=== PATIENT | female | born 1935 | race American Indian/Alaskan Native ===

== ENCOUNTER 2017-03-27 15:04 | Inpatient (IN) | payer MEDICARE ==
[2017-03-27 15:50] LABS: Basophils % (Auto) 0.6 % (0.0-1.8); Eosinophils % (Auto) 1.3 % (0.0-4.3); Hematocrit 42.8 % (30.3-42.9); Hemoglobin 14.2 gm/dl (10.1-14.3); Mean Corpuscular HGB Conc 33 % (30-34); Mean Corpuscular Hemoglobin 32 pg (28-32); Mean Corpuscular Volume 96 fl (79-97); Platelet Count 142 K/mm3 (140-440); Red Blood Count 4.44 M/mm3 (3.65-5.03); Red Cell Distribution Width 15.1 % (13.2-15.2); White Blood Count 3.9 K/mm3 (4.5-11.0)
[2017-03-27 16:08] LABS: Anion Gap 18 mmol/L; BUN/Creatinine Ratio 25; Blood Urea Nitrogen 15 mg/dL (7-17); Calcium 9.3 mg/dL (8.4-10.2); Carbon Dioxide 25 mmol/L (22-30); Chloride 101.3 mmol/L (98-107); Glucose 93 mg/dL (65-100); Potassium 3.8 mmol/L (3.6-5.0); Sodium 140 mmol/L (137-145)
[2017-03-27] MEDS ORDERED: BABY ASPIRIN PO ONE (18:19)
[2017-03-27] MEDS ORDERED: NACL 0.9% 1000 ML 1,000 ML IV ONE (18:19)
--- NOTE | 2017-03-27 18:23 | Emergency Department Report ---
ED Chest Pain HPI - General Chief Complaint: Chest Pain Stated Complaint: CHEST PAIN/NO URINE Time Seen by Provider: 03/27/17 18:11 Source: patient Mode of arrival: Ambulatory Limitations: No Limitations - History of Present Illness Initial Comments: Recent is a 81 years old female history of high blood pressure, chronic dysphagia for which she had full workup at [facility] in [place]. She presented today with her daughter with a left chest pain this been going on for 2 days described as pressure radiating to her left arm. Her daughter also stated that she is been having difficulty eating or drinking, decreased urine output. Denied any fever nausea or vomiting no diarrhea. MD Complaint: chest pain Onset: during rest Pain Location: left chest Pain Radiation: back Severity: moderate Severity scale (0 -10): 4 Quality: tightness - Related Data Home Medications Medication Instructions Recorded Confirmed Last Taken Amlodipine Besylate/Benazepril 10 DAILY 10/16/14 10/16/14 10/15/14 [amLODIPine-Benazepril 10/20 mg] Omeprazole [PriLOSEC] 40 mg PO 10/16/14 10/16/14 10/15/14 Promethazine [Phenergan TAB] 25 mg PO Q6H PRN 10/16/14 10/16/14 10/15/14 Tramadol HCl [traMADol] 50 mg PO 10/16/14 10/16/14 10/15/14 Allergies Allergy/AdvReac Type Severity Reaction Status Date / Time No Known Allergies Allergy Verified 03/27/17 15:19 Heart Score - HEART Score History: Moderately suspicious EKG: Non-specific Age: > 65 Risk factors: > 3 risk factors or hx of atherosclerotic disease Troponin: < normal limit HEART Score: 6 - Critical Actions Critical Actions: 4-6 pts:12-16.6% risk of adverse cardiac event. Should be admitted ED Review of Systems ROS: Stated complaint: CHEST PAIN/NO URINE Other details as noted in HPI Comment: All other systems reviewed and negative Constitutional: denies: chills, fever Respiratory: denies: cough, orthopnea, shortness of breath, SOB with exertion Cardiovascular: chest pain. denies: palpitations, dyspnea on exertion, orthopnea Gastrointestinal: denies: abdominal pain, nausea, vomiting, diarrhea, constipation, hematemesis, melena, hematochezia Genitourinary: denies: urgency Skin: denies: rash Neurological: denies: headache, weakness, numbness, paresthesias ED Past Medical Hx - Past Medical History Previous Medical History?: Yes Hx Hypertension: Yes Hx GERD: Yes Additional medical history: Heart murmer, Syphillus - Surgical History Past Surgical History?: Yes Additional Surgical History: Cerebral shunt, neck surgery - Social History Smoking Status: Never Smoker Substance Use Type: None - Medications Home Medications: Home Medications Medication Instructions Recorded Confirmed Last Taken Type Amlodipine Besylate/Benazepril 10 DAILY 10/16/14 10/16/14 10/15/14 History [amLODIPine-Benazepril 10/20 mg] Omeprazole [PriLOSEC] 40 mg PO 10/16/14 10/16/14 10/15/14 History Promethazine [Phenergan TAB] 25 mg PO Q6H PRN 10/16/14 10/16/14 10/15/14 History Tramadol HCl [traMADol] 50 mg PO 10/16/14 10/16/14 10/15/14 History ED Physical Exam - General Limitations: No Limitations General appearance: alert, in no apparent distress - Head Head exam: Present: atraumatic, normocephalic - Eye Eye exam: Present: normal appearance, PERRL - ENT ENT exam: Present: mucous membranes dry - Neck Neck exam: Present: normal inspection, full ROM. Absent: tenderness, meningismus - Respiratory Respiratory exam: Present: normal lung sounds bilaterally. Absent: wheezes, rales, rhonchi, stridor, chest wall tenderness, accessory muscle use, decreased breath sounds - Cardiovascular Cardiovascular Exam: Present: regular rate, systolic murmur - GI/Abdominal GI/Abdominal exam: Present: soft, normal bowel sounds. Absent: distended, tenderness, guarding, rebound, rigid, mass, bruit, pulsatile mass - Back Exam Back exam: Present: normal inspection. Absent: CVA tenderness (R), CVA tenderness (L) - Neurological Exam Neurological exam: Present: alert, oriented X3, CN II-XII intact - Psychiatric Psychiatric exam: Present: normal affect - Skin Skin exam: Present: warm, intact, normal color ED Course Vital Signs 03/27/17 15:20 Temperature 98.6 F Pulse Rate 88 Respiratory 18 Rate Blood Pressure 148/73 O2 Sat by Pulse 100 Oximetry - Reevaluation(s) Reevaluation #1: 03/27/17 18:33 Patient stated that her chest pain is better now. ED Medical Decision Making - Lab Data Result diagrams: 03/27/17 15:34 03/27/17 15:34 - EKG Data -: EKG Interpreted by Me EKG shows normal: sinus rhythm Rate: normal - EKG Data Interpretation: no acute changes - Medical Decision Making Discussed with Dr. Biswas, I presented the patient to him he accepted the patient to be admitted to telemetry. Critical care attestation.: If time is entered above; I have spent that time in minutes in the direct care of this critically ill patient, excluding procedure time. ED Disposition Clinical Impression: Chest pain, Dehydration, Dysphagia Disposition: DC-09 OP ADMIT IP TO THIS HOSP Is pt being admited?: Yes Condition: Stable Instructions: Chest Pain (ED) Referrals: PRIMARY CARE, [Primary Care Provider] - 3-5 Days
[2017-03-27] MEDS ORDERED: NACL 0.9% 1000 ML 1,000 ML ONE (19:48)
[2017-03-27] MEDS ORDERED: BABY ASPIRIN ONE (19:48)
--- NOTE | 2017-03-27 20:45 | XRay Report ---
FINAL REPORT EXAM: XR CHEST 1V AP HISTORY: chest pain TECHNIQUE: upright single view chest PRIORS: None. FINDINGS: Cardiac and mediastinal contours are unremarkable. No focal pulmonary infiltrate is identified. No pleural fluid collection seen. Pulmonary vasculature is unremarkable. Shunt tubing overlies the right jonathon thorax. There has been fusion lower cervical spine. IMPRESSION: ROCK SPLITTER shunt tubing overlying the right jonathon thorax Status post surgical fusion lower cervical spine No acute findings in the chest
--- NOTE | 2017-03-27 23:42 | History and Physical Report ---
History of Present Illness Date of examination: 03/27/17 Date of admission: 03/27/17 18:35 Chief complaint: Chest pain 1 Day History of present illness: History of Present Illness 81 years old female history of high blood pressure, chronic dysphagia for which she had full workup at [facility] in [place] presented today with her daughter with a left chest pain this been going on for 2 days described as pressure radiating to her left arm. Her daughter also stated that she is been having difficulty eating or drinking, decreased urine output. Denied any fever nausea or vomiting no diarrhea. Past Medical History Previous Medical History?: Yes Hx Hypertension: Yes Hx GERD: Yes Additional medical history: Heart murmer, Syphillus - Surgical History Past Surgical History?: Yes Additional Surgical History: Cerebral shunt, neck surgery - Social History Smoking Status: Never Smoker Substance Use Type: None Fam Hx HTN - Medications Home Medications: Home Medications Medication Instructions Recorded Confirmed Last Taken Type Amlodipine Besylate/Benazepril 10 DAILY 10/16/14 10/16/14 10/15/14 History [amLODIPine-Benazepril 10/20 mg] Omeprazole [PriLOSEC] 40 mg PO 10/16/14 10/16/14 10/15/14 History Promethazine [Phenergan TAB] 25 mg PO Q6H PRN 10/16/14 10/16/14 10/15/14 History Tramadol HCl [traMADol] 50 mg PO 10/16/14 10/16/14 10/15/14 History Review of Systems ROS: Stated complaint: CHEST PAIN/NO URINE Other details as noted in HPI Comment: All other systems reviewed and negative Constitutional: denies: chills, fever Respiratory: denies: cough, orthopnea, shortness of breath, SOB with exertion Cardiovascular: chest pain. denies: palpitations, dyspnea on exertion, orthopnea Gastrointestinal: denies: abdominal pain, nausea, vomiting, diarrhea, constipation, hematemesis, melena, hematochezia Genitourinary: denies: urgency Skin: denies: rash Neurological: denies: headache, weakness, numbness, paresthesias Medications and Allergies Allergies Allergy/AdvReac Type Severity Reaction Status Date / Time No Known Allergies Allergy Verified 03/27/17 15:19 Home Medications Medication Instructions Recorded Confirmed Last Taken Type Amlodipine Besylate/Benazepril 10 DAILY 0610/16/14 10/15/14 History [amLODIPine-Benazepril 10/20 mg] Omeprazole [PriLOSEC] 40 mg PO 10/16/14 10/16/14 10/15/14 History Promethazine [Phenergan TAB] 25 mg PO Q6H PRN 10/16/14 10/16/14 10/15/14 History Tramadol HCl [traMADol] 50 mg PO 10/16/14 10/16/14 10/15/14 History Exam - Constitutional Vitals: Temp Pulse Resp BP Pulse Ox 98.0 F 75 15 130/59 95 03/27/17 22:42 03/27/17 22:42 03/27/17 22:42 03/27/17 22:15 03/27/17 22:42 General appearance: Present: no acute distress, well-nourished - EENT Eyes: Present: PERRL ENT: hearing intact, clear oral mucosa - Neck Neck: Present: supple, normal ROM - Respiratory Respiratory effort: normal Respiratory: bilateral: CTA - Cardiovascular Rhythm: regular Heart Sounds: Present: S1 & S2. Absent: rub, click - Extremities Extremities: pulses symmetrical, No edema Peripheral Pulses: within normal limits - Abdominal General gastrointestinal: Present: soft, non-tender, non-distended, normal bowel sounds Female genitourinary: Present: normal - Rectal Rectal Exam: deferred - Integumentary Integumentary: Present: clear, warm, dry - Musculoskeletal Musculoskeletal: gait normal, strength equal bilaterally - Psychiatric Psychiatric: appropriate mood/affect, intact judgment & insight - Neurologic Neurologic: CNII-XII intact, moves all extremities - Allied Health Allied health notes reviewed: nursing, case management Results - Labs CBC & Chem 7: 03/27/17 15:34 03/27/17 15:34 Labs: Laboratory Last Values WBC 3.9 K/mm3 (4.5-11.0) L 03/27/17 15:34 RBC 4.44 M/mm3 (3.65-5.03) 03/27/17 15:34 Hgb 14.2 gm/dl (10.1-14.3) 03/27/17 15:34 Hct 42.8 % (30.3-42.9) 03/27/17 15:34 MCV 96 fl (79-97) 03/27/17 15:34 MCH 32 pg (28-32) 03/27/17 15:34 MCHC 33 % (30-34) 03/27/17 15:34 RDW 15.1 % (13.2-15.2) 03/27/17 15:34 Plt Count 142 K/mm3 (140-440) 03/27/17 15:34 Lymph % (Auto) 39.6 % (13.4-35.0) H 03/27/17 15:34 [place] % (Auto) 8.4 % (0.0-7.3) H 03/27/17 15:34 Eos % (Auto) 1.3 % (0.0-4.3) 03/27/17 15:34 Baso % (Auto) 0.6 % (0.0-1.8) 03/27/17 15:34 Lymph # 1.5 K/mm3 (1.2-5.4) 03/27/17 15:34 [place] # 0.3 K/mm3 (0.0-0.8) 03/27/17 15:34 Eos # 0.0 K/mm3 (0.0-0.4) 03/27/17 15:34 Baso # 0.0 K/mm3 (0.0-0.1) 03/27/17 15:34 Seg Neutrophils % 50.1 % (40.0-70.0) 03/27/17 15:34 Seg Neutrophils # 1.9 K/mm3 (1.8-7.7) 03/27/17 15:34 Sodium 140 mmol/L (137-145) 03/27/17 15:34 Potassium 3.8 mmol/L (3.6-5.0) 03/27/17 15:34 Chloride 101.3 mmol/L (98-107) 03/27/17 15:34 Carbon Dioxide 25 mmol/L (22-30) 03/27/17 15:34 Anion Gap 18 mmol/L 03/27/17 15:34 BUN 15 mg/dL (7-17) 03/27/17 15:34 Creatinine 0.6 mg/dL (0.7-1.2) L 03/27/17 15:34 Estimated GFR > 60 ml/min 03/27/17 15:34 BUN/Creatinine Ratio 25 % 03/27/17 15:34 Glucose 93 mg/dL (65-100) 03/27/17 15:34 Calcium 9.3 mg/dL (8.4-10.2) 03/27/17 15:34 Troponin T < 0.010 ng/mL (0.00-0.029) 03/27/17 21:17 Short CBC 03/27/17 Range/Units 15:34 WBC 3.9 L (4.5-11.0) K/mm3 Hgb 14.2 (10.1-14.3) gm/dl Hct 42.8 (30.3-42.9) % Plt Count 142 (140-440) K/mm3 BMP 03/27/17 15:34 Sodium 140 Potassium 3.8 Chloride 101.3 Carbon Dioxide 25 BUN 15 Creatinine 0.6 L Glucose 93 Calcium 9.3 Cardiac Enzymes 03/27/17 03/27/17 03/27/17 Range/Units 15:34 18:35 21:17 Total Creatine Kinase (30-135) units/L CK-MB (CK-2) (0.0-4.0) ng/mL Troponin T < 0.010 < 0.010 < 0.010 (0.00-0.029) ng/mL 03/28/17 Range/Units 03:46 Total Creatine Kinase 33 (30-135) units/L CK-MB (CK-2) < 1.0 (0.0-4.0) ng/mL Troponin T < 0.010 (0.00-0.029) ng/mL - Imaging and Cardiology EKG: report reviewed (NSR 78/min) Chest x-ray: report reviewed (DIGITAL IMAGING SPECIALIST shunt tube in R hemithorax) Abdominal x-ray: report reviewed Assessment and Plan Advance Directives: Yes (FC) VTE prophylaxis?: Chemical Plan of care discussed with patient/family: Yes - Patient Problems (1) ACS (acute coronary syndrome) Current Visit: Yes Status: Acute Plan to address problem: Serial cardiac enzymes and Lexiscan in AM Reflux a possibility Par\tient on Omeprazole (2) HTN (hypertension) Current Visit: Yes Status: Chronic Qualifiers: Hypertension type: essential hypertension Qualified Code(s): I10 - Essential (primary) hypertension Plan to address problem: Cont Amlodipine and Benazepril (3) GERD (gastroesophageal reflux disease) Current Visit: Yes Status: Chronic Qualifiers: Esophagitis presence: with esophagitis Qualified Code(s): K21.0 - Gastro- esophageal reflux disease with esophagitis Plan to address problem: ON pPI's (4) Dysphagia Current Visit: Yes Status: Chronic Qualifiers: Dysphagia type: pharyngoesophageal phase Qualified Code(s): R13.14 - Dysphagia, pharyngoesophageal phase Plan to address problem: GI consult requested (5) DVT prophylaxis Current Visit: Yes Status: Acute Plan to address problem: On Lovenox
[2017-03-28] MEDS ORDERED: PHENERGAN PO PRN (00:56)
[2017-03-28 04:31] LABS: Creatine Kinase 33 units/L (30-135)
[2017-03-28 04:52] LABS: Creatine Kinase MB < 1.0 ng/mL (0.0-4.0)
[2017-03-28] MEDS ORDERED: LEXISCAN IV ONE ×2 (07:49→07:55)
[2017-03-28 08:40] LABS: Creatine Kinase 37 units/L (30-135)
[2017-03-28 08:45] LABS: Creatine Kinase MB < 1.0 ng/mL (0.0-4.0)
[2017-03-28] MEDS: ZESTRIL PO SCH (10:57)
[2017-03-28] MEDS: ULTRAM PO SCH ×2 (10:58→22:40)
[2017-03-28] MEDS: PROTONIX PO SCH (10:58)
[2017-03-28] MEDS: NORVASC PO SCH (10:58)
--- NOTE | 2017-03-28 14:00 | Progress Note ---
Assessment and Plan Assessment and plan: 81 years old female history of high blood pressure, chronic dysphagia for which she had full workup at [facility] in [place] presented today with her daughter with a left chest pain this been going on for 2 days described as pressure radiating to her left arm. Her daughter also stated that she is been having difficulty eating or drinking, decreased urine output. Denied any fever nausea or vomiting no diarrhea. Atypical chest pain Dysphagia Severe protein calorie malnutrition HTN Dysphagia Plan * Supportive care * await stress test result * Continue supportive care * GI consult * Cut Tobacco Bulker, speech eval * Dvt/gi prophy * plan discussed with the patient in detial History Interval history: Patient is in acute distress. Reports that for the last few months has not been able to drink water but has been leaving on boast Hospitalist Physical - Physical exam Narrative exam: VITAL SIGNS: Reviewed. GENERAL: The patient appeared in no acute distress but very cachetic. Vital signs as documented. HEAD: No signs of head trauma. EYES: Pupils are equal. Extraocular motions intact. EARS: Hearing grossly intact. MOUTH: Oropharynx is normal. NECK: No adenopathy, no JVD. CHEST: Chest with clear breath sounds bilaterally. No wheezes, rales, or rhonchi. CARDIAC: Regular rate and rhythm. S1 and S2, without murmurs, gallops, or rubs. VASCULAR: No Edema. Peripheral pulses normal and equal in all extremities. ABDOMEN: Soft, without detectable tenderness. No sign of distention. No rebound or guarding, and no masses palpated. Bowel Sounds normal. MUSCULOSKELETAL: Good range of motion of all major joints. Extremities without clubbing, cyanosis or edema. NEUROLOGIC EXAM: Alert and oriented x 3. No focal sensory or strength deficits. Speech normal. Follows commands. PSYCHIATRIC: Mood normal. SKIN: No rash or lesions. - Constitutional Vitals: Temp Pulse Resp BP Pulse Ox 98.2 F 71 20 131/70 98 03/28/17 05:13 03/28/17 10:58 03/28/17 05:13 03/28/17 10:58 03/28/17 05:13 General appearance: Present: no acute distress, well-nourished Results - Labs CBC & Chem 7: 03/27/17 15:34 03/27/17 15:34 Labs: Laboratory Last Values WBC 3.9 K/mm3 (4.5-11.0) L 03/27/17 15:34 RBC 4.44 M/mm3 (3.65-5.03) 03/27/17 15:34 Hgb 14.2 gm/dl (10.1-14.3) 03/27/17 15:34 Hct 42.8 % (30.3-42.9) 03/27/17 15:34 MCV 96 fl (79-97) 03/27/17 15:34 MCH 32 pg (28-32) 03/27/17 15:34 MCHC 33 % (30-34) 03/27/17 15:34 RDW 15.1 % (13.2-15.2) 03/27/17 15:34 Plt Count 142 K/mm3 (140-440) 03/27/17 15:34 Lymph % (Auto) 39.6 % (13.4-35.0) H 03/27/17 15:34 [place] % (Auto) 8.4 % (0.0-7.3) H 03/27/17 15:34 Eos % (Auto) 1.3 % (0.0-4.3) 03/27/17 15:34 Baso % (Auto) 0.6 % (0.0-1.8) 03/27/17 15:34 Lymph # 1.5 K/mm3 (1.2-5.4) 03/27/17 15:34 [place] # 0.3 K/mm3 (0.0-0.8) 03/27/17 15:34 Eos # 0.0 K/mm3 (0.0-0.4) 03/27/17 15:34 Baso # 0.0 K/mm3 (0.0-0.1) 03/27/17 15:34 Seg Neutrophils % 50.1 % (40.0-70.0) 03/27/17 15:34 Seg Neutrophils # 1.9 K/mm3 (1.8-7.7) 03/27/17 15:34 Sodium 140 mmol/L (137-145) 03/27/17 15:34 Potassium 3.8 mmol/L (3.6-5.0) 03/27/17 15:34 Chloride 101.3 mmol/L (98-107) 03/27/17 15:34 Carbon Dioxide 25 mmol/L (22-30) 03/27/17 15:34 Anion Gap 18 mmol/L 03/27/17 15:34 BUN 15 mg/dL (7-17) 03/27/17 15:34 Creatinine 0.6 mg/dL (0.7-1.2) L 03/27/17 15:34 Estimated GFR > 60 ml/min 03/27/17 15:34 BUN/Creatinine Ratio 25 % 03/27/17 15:34 Glucose 93 mg/dL (65-100) 03/27/17 15:34 Calcium 9.3 mg/dL (8.4-10.2) 03/27/17 15:34 Total Creatine Kinase 37 units/L (30-135) 03/28/17 07:00 CK-MB (CK-2) < 1.0 ng/mL (0.0-4.0) 03/28/17 07:00 CK-MB (CK-2) Rel Index 2.7 (0-4) 03/28/17 07:00 Troponin T < 0.010 ng/mL (0.00-0.029) 03/28/17 07:00 - Imaging and Cardiology Chest x-ray: image reviewed (vp digital marketing shunt noted. no other acute pathology noted)
[2017-03-28 14:01] LABS: Creatine Kinase 44 units/L (30-135)
[2017-03-28 14:04] LABS: Creatine Kinase MB < 1.0 ng/mL (0.0-4.0)
--- NOTE | 2017-03-28 14:36 | Gastroenterology Consultation ---
History of Present Illness - Reason for Consult Consult date: 03/28/17 dysphagia Requesting physician: KATIANA PURDY - History of Present Illness Ms Camara is a 81 yo aaf who presents with multiple complaints of pain including chest pain with radiation to left arm for the past few days. She is undergoing cardiac work-up. She has a h/o chronic dysphagia, she feels sticking sensation in throat which is worse with solids then liquids. She states this has been going on for the past year but progressively worsening. It appears she has had prior similar symptoms based on chart review, and had EGD performed by Dr Hopper in 2014 which was unremarkable. She has a reported history of neck surgeries in the past. She has had significant weight loss over the last couple years (140's down to 90's). Denies significant abd pain or change in bowel habits. Past History Past Medical History: GERD, hypertension Past Surgical History: Other (cerebral shunt) Social history: no significant social history. denies: smoking, alcohol abuse Family history: no significant family history Medications and Allergies Allergies Allergy/AdvReac Type Severity Reaction Status Date / Time No Known Allergies Allergy Verified 03/27/17 15:19 Home Medications Medication Instructions Recorded Confirmed Last Taken Type Amlodipine Besylate/Benazepril 10 DAILY 10/16/14 10/16/14 10/15/14 History [amLODIPine-Benazepril 10/20 mg] Omeprazole [PriLOSEC] 40 mg PO 10/16/14 10/16/14 10/15/14 History Promethazine [Phenergan TAB] 25 mg PO Q6H PRN 10/16/14 10/16/14 10/15/14 History Tramadol HCl [traMADol] 50 mg PO 10/16/14 10/16/14 10/15/14 History Active Meds: Active Medications Amlodipine Besylate (Norvasc) 10 mg PO QDAY [facility] Last Admin: 03/28/17 10:58 Dose: 10 mg Lisinopril (Zestril) 20 mg PO QDAY [facility] Last Admin: 03/28/17 10:57 Dose: 20 mg Pantoprazole Sodium (Protonix) 40 mg PO QDAY [facility] Last Admin: 03/28/17 10:58 Dose: 40 mg Promethazine HCl (Phenergan) 25 mg PO Q6H PRN PRN Reason: Nausea Tramadol HCl (Ultram) 50 mg PO BID [facility] Last Admin: 03/28/17 10:58 Dose: 50 mg Review of Systems - Review of Systems All systems: negative (per HPI) Neurological: weakness, memory loss Psychiatric: change in appetite Exam - Constitutional Vital Signs: Temp Pulse Resp BP Pulse Ox 98.2 F 76 20 131/70 97 03/28/17 05:13 03/28/17 14:14 03/28/17 05:13 03/28/17 10:58 03/28/17 10:00 General appearance: no acute distress, other (thin female) - EENT Eyes: PERRL, EOM intact ENT: poor dentition - Neck Neck: supple - Respiratory Respiratory effort: normal Respiratory: bilateral: CTA - Cardiovascular Rhythm: regular Heart Sounds: Present: S1 & S2 Extremities: No edema - Gastrointestinal General gastrointestinal: Present: soft, non-tender, non-distended - Integumentary Integumentary: Present: clear, warm - Neurologic Neurological: alert and oriented x3 - Psychiatric Psychiatric: appropriate mood/affect - Labs CBC & Chem 7: 03/27/17 15:34 03/27/17 15:34 Lab Results: Laboratory Results - last 24 hr 03/27/17 03/27/17 03/27/17 15:34 15:34 18:35 WBC 3.9 L RBC 4.44 Hgb 14.2 Hct 42.8 MCV 96 MCH 32 MCHC 33 RDW 15.1 Plt Count 142 Lymph % (Auto) 39.6 H [place] % (Auto) 8.4 H Eos % (Auto) 1.3 Baso % (Auto) 0.6 Lymph # 1.5 [place] # 0.3 Eos # 0.0 Baso # 0.0 Seg Neutrophils % 50.1 Seg Neutrophils # 1.9 Sodium 140 Potassium 3.8 Chloride 101.3 Carbon Dioxide 25 Anion Gap 18 BUN 15 Creatinine 0.6 L Estimated GFR > 60 BUN/Creatinine Ratio 25 Glucose 93 Calcium 9.3 Total Creatine Kinase CK-MB (CK-2) CK-MB (CK-2) Rel Index Troponin T < 0.010 < 0.010 03/27/17 03/28/17 03/28/17 21:17 03:46 07:00 WBC RBC Hgb Hct MCV MCH MCHC RDW Plt Count Lymph % (Auto) [place] % (Auto) Eos % (Auto) Baso % (Auto) Lymph # [place] # Eos # Baso # Seg Neutrophils % Seg Neutrophils # Sodium Potassium Chloride Carbon Dioxide Anion Gap BUN Creatinine Estimated GFR BUN/Creatinine Ratio Glucose Calcium Total Creatine Kinase 33 37 CK-MB (CK-2) < 1.0 < 1.0 CK-MB (CK-2) Rel Index 3.0 2.7 Troponin T < 0.010 < 0.010 < 0.010 03/28/17 13:08 WBC RBC Hgb Hct MCV MCH MCHC RDW Plt Count Lymph % (Auto) [place] % (Auto) Eos % (Auto) Baso % (Auto) Lymph # [place] # Eos # Baso # Seg Neutrophils % Seg Neutrophils # Sodium Potassium Chloride Carbon Dioxide Anion Gap BUN Creatinine Estimated GFR BUN/Creatinine Ratio Glucose Calcium Total Creatine Kinase 44 CK-MB (CK-2) < 1.0 CK-MB (CK-2) Rel Index 2.2 Troponin T < 0.010 Assessment and Plan 1. Dysphagia - chronic dysphagia, solids > liquids; appears to have prior similar symptoms with unremarkable egd in 2014. however, appears to be progressing per pt's history and she has had significant weight loss. ? mechanical esophageal disorder vs dysmotility vs oropharyngeal dysphagia vs 2/2 prior neck surgeries 2. Chest pain - cardiac work-up pending/stress test pending -obtain speech eval/MBS -esophogram while cardiac work-up is being done -eventual EGD based on cardiac work-up and MBS/esophogram results
--- NOTE | 2017-03-28 15:01 | Progress Note ---
Subjective Date of service: 03/28/17 Interval history: Preliminary stress test report: Negative for stress induced ischemia. EF 80% Objective Vital Signs Temp Pulse Resp BP Pulse Ox 03/28/17 14:14 76 03/28/17 10:58 71 131/70 03/28/17 10:57 71 131/70 03/28/17 10:00 97 03/28/17 09:14 98 H 149/67 03/28/17 09:13 100 H 151/69 03/28/17 09:12 99 H 146/68 03/28/17 09:11 98 H 143/70 03/28/17 09:10 99 H 140/72 03/28/17 09:09 94 H 146/71 03/28/17 09:07 68 155/69 03/28/17 06:33 64 03/28/17 05:13 98.2 F 71 20 131/70 98 03/28/17 01:11 68 18 143/74 100 03/28/17 01:00 70 17 114/72 100 03/28/17 00:51 79 16 106/66 99 03/28/17 00:49 67 16 143/74 03/28/17 00:09 97.9 F 70 20 123/62 99 03/27/17 23:01 82 16 143/74 100 03/27/17 22:51 77 15 131/70 97 03/27/17 22:42 98.0 F 75 15 95 03/27/17 22:41 76 15 125/65 97 03/27/17 22:30 76 15 125/65 96 03/27/17 22:15 75 15 130/59 95 03/27/17 22:00 78 14 134/65 95 03/27/17 21:45 74 14 126/63 96 03/27/17 21:30 70 14 127/61 96 03/27/17 21:15 75 16 129/60 97 03/27/17 21:00 78 17 142/67 95 03/27/17 20:45 76 16 127/61 96 03/27/17 20:30 74 15 122/59 96 03/27/17 20:15 78 14 127/64 96 03/27/17 20:00 76 14 121/58 98 03/27/17 19:45 77 15 121/62 98 03/27/17 19:31 80 15 133/68 98 03/27/17 19:16 98 03/27/17 15:20 98.6 F 88 18 148/73 100 - Labs and Meds Cardiac Enzymes 03/28/17 03/28/17 03/28/17 Range/Units 03:46 07:00 13:08 CK-MB (CK-2) < 1.0 < 1.0 < 1.0 (0.0-4.0) ng/mL CBC 03/27/17 Range/Units 15:34 WBC 3.9 L (4.5-11.0) K/mm3 RBC 4.44 (3.65-5.03) M/mm3 Hgb 14.2 (10.1-14.3) gm/dl Hct 42.8 (30.3-42.9) % Plt Count 142 (140-440) K/mm3 Lymph # 1.5 (1.2-5.4) K/mm3 [place] # 0.3 (0.0-0.8) K/mm3 Eos # 0.0 (0.0-0.4) K/mm3 Baso # 0.0 (0.0-0.1) K/mm3 Comprehensive Metabolic Panel 03/27/17 Range/Units 15:34 Sodium 140 (137-145) mmol/L Potassium 3.8 (3.6-5.0) mmol/L Chloride 101.3 (98-107) mmol/L Carbon Dioxide 25 (22-30) mmol/L BUN 15 (7-17) mg/dL Creatinine 0.6 L (0.7-1.2) mg/dL Glucose 93 (65-100) mg/dL Calcium 9.3 (8.4-10.2) mg/dL - Imaging and Cardiology EKG: report reviewed (NSR 78/min)
--- NOTE | 2017-03-29 09:24 | Fluoroscopy Report ---
ESOPHAGRAM History: Dysphagia. Findings: Deglutition is normal. There is no evidence for aspiration. The esophagus has normal caliber and mucosal pattern throughout. No evidence for mass, ring, web or diverticulum. Occasional tertiary contractions of the esophagus were witnessed throughout this exam. No hiatal hernia. Impression: No esophageal lesion is identified. Mild esophageal dysmotility was witnessed.
[2017-03-29] MEDS: ZESTRIL PO SCH (12:06)
[2017-03-29] MEDS: NORVASC PO SCH (12:06)
[2017-03-29] MEDS: ULTRAM PO SCH ×2 (12:07→22:04)
[2017-03-29] MEDS: PROTONIX PO SCH (12:07)
--- NOTE | 2017-03-29 12:18 | Gastroenterology Progress Note ---
Assessment and Plan 1. Dysphagia - chronic dysphagia, solids > liquids; appears to have prior similar symptoms with unremarkable egd in 2014. however, appears to be progressing per pt's history and she has had significant weight loss. 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 No acute distress or events overnight. Family at bedside. Reports tolerating juice and ensure this am. Objective - Constitutional Vitals: Temp Pulse Resp BP Pulse Ox 97.9 F 66 18 137/68 96 03/29/17 07:20 03/29/17 12:06 03/29/17 07:20 03/29/17 12:06 03/29/17 07:21 General appearance: no acute distress, other (thin appearing) - EENT Eyes: PERRL, EOM intact ENT: hearing intact - Respiratory Respiratory: bilateral: CTA - Cardiovascular Rhythm: regular Heart Sounds: Present: S1 & S2 - Gastrointestinal General gastrointestinal: Present: soft, non-tender, non-distended, normal bowel sounds - Integumentary Integumentary: Present: warm, dry - Labs CBC & Chem 7: 03/27/17 15:34 03/27/17 15:34 Labs: Laboratory Results - last 24 hr 03/28/17 13:08 Total Creatine Kinase 44 CK-MB (CK-2) < 1.0 CK-MB (CK-2) Rel Index 2.2 Troponin T < 0.010
--- NOTE | 2017-03-29 16:24 | Progress Note ---
Assessment and Plan Assessment and plan: Patient is 81-year-old woman with history of hypertension, chronic back pain status post surgery, ? stroke due to brain surgery who presents to the emergency department with left-sided chest pain, dysphagia. Atypical chest pain, most likely related to GERD: Treat with PPI once a dysphagia once worked up Dysphagia, most likely odynophagia: d/w GI==>she had an EGD 2014. Severe protein calorie malnutrition: consult dietitian HTN: treat with antihypertensives, monitor closely while NPO Patient failed a speech evaluation, order modified barium, discussed with GI History Interval history: Patient was seen and examined. Follow-up on current diagnosis stage. Overnight uneventful. Patient denies any chest pain, shortness breath, nausea/ vomiting or severe headaches. Imaging, nursing note, chart, labs and old chart reviewed. Discussed with patient. Patient main complaint is bad taste in her mouth, nonspecific details Hospitalist Physical - Physical exam Narrative exam: GEN: Thin frail awake and oriented 2 HEENT: NCAT, EOMI, PERRL, OP Clear NECK: supple, no adenopathy, no thyromegaly, no JVD CVS/HEART: RRR, NORMAL S1S2, NO JVD, pulses present bilaterally CHEST/LUNGS: CTA B, Symmetrical chest expansion, good air entry bilaterally GI/Abdomen: soft, NTND, good bowel sounds, no guarding or rebound /Bladder: no suprapubic tenderness, no CVA or paraspinal tenderness EXT/Skin: no c/c/e, no obvious rash MSK: Left-sided weakness with hand contractures Neuro: CN 2-12 grossly intact, no new focal deficits Psych: calm - Constitutional Vitals: Temp Pulse Resp BP Pulse Ox 97.8 F 65 18 106/53 97 03/29/17 10:53 03/29/17 15:06 03/29/17 10:53 03/29/17 15:06 03/29/17 15:06 General appearance: Present: no acute distress, well-nourished Results - Labs CBC & Chem 7: 03/27/17 15:34 03/27/17 15:34 Labs: Laboratory Last Values WBC 3.9 K/mm3 (4.5-11.0) L 03/27/17 15:34 RBC 4.44 M/mm3 (3.65-5.03) 03/27/17 15:34 Hgb 14.2 gm/dl (10.1-14.3) 03/27/17 15:34 Hct 42.8 % (30.3-42.9) 03/27/17 15:34 MCV 96 fl (79-97) 03/27/17 15:34 MCH 32 pg (28-32) 03/27/17 15:34 MCHC 33 % (30-34) 03/27/17 15:34 RDW 15.1 % (13.2-15.2) 03/27/17 15:34 Plt Count 142 K/mm3 (140-440) 03/27/17 15:34 Lymph % (Auto) 39.6 % (13.4-35.0) H 03/27/17 15:34 [place] % (Auto) 8.4 % (0.0-7.3) H 03/27/17 15:34 Eos % (Auto) 1.3 % (0.0-4.3) 03/27/17 15:34 Baso % (Auto) 0.6 % (0.0-1.8) 03/27/17 15:34 Lymph # 1.5 K/mm3 (1.2-5.4) 03/27/17 15:34 [place] # 0.3 K/mm3 (0.0-0.8) 03/27/17 15:34 Eos # 0.0 K/mm3 (0.0-0.4) 03/27/17 15:34 Baso # 0.0 K/mm3 (0.0-0.1) 03/27/17 15:34 Seg Neutrophils % 50.1 % (40.0-70.0) 03/27/17 15:34 Seg Neutrophils # 1.9 K/mm3 (1.8-7.7) 03/27/17 15:34 Sodium 140 mmol/L (137-145) 03/27/17 15:34 Potassium 3.8 mmol/L (3.6-5.0) 03/27/17 15:34 Chloride 101.3 mmol/L (98-107) 03/27/17 15:34 Carbon Dioxide 25 mmol/L (22-30) 03/27/17 15:34 Anion Gap 18 mmol/L 03/27/17 15:34 BUN 15 mg/dL (7-17) 03/27/17 15:34 Creatinine 0.6 mg/dL (0.7-1.2) L 03/27/17 15:34 Estimated GFR > 60 ml/min 03/27/17 15:34 BUN/Creatinine Ratio 25 % 03/27/17 15:34 Glucose 93 mg/dL (65-100) 03/27/17 15:34 Calcium 9.3 mg/dL (8.4-10.2) 03/27/17 15:34 Total Creatine Kinase 44 units/L (30-135) 03/28/17 13:08 CK-MB (CK-2) < 1.0 ng/mL (0.0-4.0) 03/28/17 13:08 CK-MB (CK-2) Rel Index 2.2 (0-4) 03/28/17 13:08 Troponin T < 0.010 ng/mL (0.00-0.029) 03/28/17 13:08
[2017-03-30 07:12] LABS: Hemoglobin 11.6 gm/dl (10.1-14.3); Mean Corpuscular HGB Conc 34 % (30-34); Mean Corpuscular Hemoglobin 33 pg (28-32); Mean Corpuscular Volume 97 fl (79-97); Platelet Count 119 K/mm3 (140-440); Red Blood Count 3.58 M/mm3 (3.65-5.03); Red Cell Distribution Width 14.6 % (13.2-15.2); White Blood Count 4.4 K/mm3 (4.5-11.0)
[2017-03-30 07:32] LABS: Anion Gap 11 mmol/L; BUN/Creatinine Ratio 25; Blood Urea Nitrogen 10 mg/dL (7-17); Calcium 8.4 mg/dL (8.4-10.2); Carbon Dioxide 24 mmol/L (22-30); Chloride 109.4 mmol/L (98-107); Glucose 73 mg/dL (65-100); Potassium 3.8 mmol/L (3.6-5.0); Sodium 141 mmol/L (137-145)
[2017-03-30 07:33] LABS: Hematocrit 34.6 % (30.3-42.9)
[2017-03-30] MEDS: NORVASC PO SCH (10:00)
[2017-03-30] MEDS: ZESTRIL PO SCH (10:00)
--- NOTE | 2017-03-30 11:57 | Fluoroscopy Report ---
MODIFIED BARIUM SWALLOW History: dysphagia. Findings: Video radiography was provided by the radiologist for speech therapy to assess the swallowing mechanism. Please refer to the formal report by speech therapy. Impression: Successful modified barium swallow.
--- NOTE | 2017-03-30 12:42 | Progress Note ---
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 Atypical chest pain, most likely related to GERD: Treat with PPI once a dysphagia once worked up Dysphagia, most likely odynophagia: d/w GI==>she had an EGD 2014. Severe protein calorie malnutrition: consult dietitian HTN: treat with antihypertensives, monitor closely while NPO Patient failed a speech evaluation, order modified barium, discussed with GI==> diet modified to Pureed and hopefully the The metallic taste in mouth will improve If she tolerates diet she can be discharge tomorrow. History Interval history: Patient was seen and examined. Follow-up on current diagnosis stage. Overnight uneventful. Patient denies any chest pain, shortness breath, nausea/ vomiting or severe headaches. Imaging, nursing note, chart, labs and old chart reviewed. Discussed with patient. Patient main complaint is bad taste in her mouth, metallic taste in mouth Hospitalist Physical - Physical exam Narrative exam: GEN: Thin frail awake and oriented 2 HEENT: NCAT, EOMI, PERRL, OP Clear NECK: supple, no adenopathy, no thyromegaly, no JVD CVS/HEART: RRR, NORMAL S1S2, NO JVD, pulses present bilaterally CHEST/LUNGS: CTA B, Symmetrical chest expansion, good air entry bilaterally GI/Abdomen: soft, NTND, good bowel sounds, no guarding or rebound /Bladder: no suprapubic tenderness, no CVA or paraspinal tenderness EXT/Skin: no c/c/e, no obvious rash MSK: Left-sided weakness with hand contractures Neuro: CN 2-12 grossly intact, no new focal deficits Psych: calm - Constitutional Vitals: Temp Pulse Resp BP Pulse Ox 98.7 F 71 20 120/54 97 03/30/17 00:11 03/30/17 00:11 03/30/17 10:00 03/30/17 00:11 03/30/17 00:11 General appearance: Present: no acute distress, well-nourished Results - Labs CBC & Chem 7: 03/30/17 05:47 03/30/17 05:47 Labs: Laboratory Last Values WBC 4.4 K/mm3 (4.5-11.0) L 03/30/17 05:47 RBC 3.58 M/mm3 (3.65-5.03) L 03/30/17 05:47 Hgb 11.6 gm/dl (10.1-14.3) 03/30/17 05:47 Hct 34.6 % (30.3-42.9) D 03/30/17 05:47 MCV 97 fl (79-97) 03/30/17 05:47 MCH 33 pg (28-32) H 03/30/17 05:47 MCHC 34 % (30-34) 03/30/17 05:47 RDW 14.6 % (13.2-15.2) 03/30/17 05:47 Plt Count 119 K/mm3 (140-440) L 03/30/17 05:47 Lymph % (Auto) 39.6 % (13.4-35.0) H 03/27/17 15:34 [place] % (Auto) 8.4 % (0.0-7.3) H 03/27/17 15:34 Eos % (Auto) 1.3 % (0.0-4.3) 03/27/17 15:34 Baso % (Auto) 0.6 % (0.0-1.8) 03/27/17 15:34 Lymph # 1.5 K/mm3 (1.2-5.4) 03/27/17 15:34 [place] # 0.3 K/mm3 (0.0-0.8) 03/27/17 15:34 Eos # 0.0 K/mm3 (0.0-0.4) 03/27/17 15:34 Baso # 0.0 K/mm3 (0.0-0.1) 03/27/17 15:34 Seg Neutrophils % 50.1 % (40.0-70.0) 03/27/17 15:34 Seg Neutrophils # 1.9 K/mm3 (1.8-7.7) 03/27/17 15:34 Sodium 141 mmol/L (137-145) 03/30/17 05:47 Potassium 3.8 mmol/L (3.6-5.0) 03/30/17 05:47 Chloride 109.4 mmol/L (98-107) H 03/30/17 05:47 Carbon Dioxide 24 mmol/L (22-30) 03/30/17 05:47 Anion Gap 11 mmol/L 03/30/17 05:47 BUN 10 mg/dL (7-17) 03/30/17 05:47 Creatinine 0.4 mg/dL (0.7-1.2) L 03/30/17 05:47 Estimated GFR > 60 ml/min 03/30/17 05:47 BUN/Creatinine Ratio 25 % 03/30/17 05:47 Glucose 73 mg/dL (65-100) 03/30/17 05:47 Calcium 8.4 mg/dL (8.4-10.2) 03/30/17 05:47 Magnesium 2.00 mg/dL (1.7-2.3) 03/30/17 05:47 Total Creatine Kinase 44 units/L (30-135) 03/28/17 13:08 CK-MB (CK-2) < 1.0 ng/mL (0.0-4.0) 03/28/17 13:08 CK-MB (CK-2) Rel Index 2.2 (0-4) 03/28/17 13:08 Troponin T < 0.010 ng/mL (0.00-0.029) 03/28/17 13:08
--- NOTE | 2017-03-30 14:16 | Treadmill Report ---
THALLIUM STRESS TEST REPORT LEFT VENTRICLE: Left ventricular chamber size is within normal spread. Perfusion study demonstrates homogeneous uptake of the tracer in all segments, no significant perfusion defects identified. Gated analysis demonstrates normal left ventricular systolic function, ejection fraction greater than 70%. CONCLUSION: Normal myocardial perfusion study. JOB# [id number] CA/NTS
[2017-03-30] MEDS: ULTRAM PO SCH ×3 (15:25→21:56)
[2017-03-30] MEDS: PROTONIX PO SCH (15:28)
[2017-03-31] MEDS: D5NS 1,000 ML IV SCH (00:47)
[2017-03-31] MEDS ORDERED: NACL 0.9% 500 ML 500 ML IV ONE (08:20)
[2017-03-31] MEDS: PROTONIX PO SCH (10:03)
[2017-03-31] MEDS: ULTRAM PO SCH ×3 (10:05→21:07)
--- NOTE | 2017-03-31 16:45 | Progress Note ---
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 Atypical chest pain, most likely related to GERD: Treat with PPI once a dysphagia once worked up Dysphagia, most likely odynophagia: d/w GI==>she had an EGD 2014. Severe protein calorie malnutrition: consult dietitian HTN: stop antihypertensives because bp low, monitor closely Patient failed a speech evaluation, order modified barium, discussed with GI==> diet modified to Pureed and hopefully the The metallic taste in mouth will improve She tolerated a diet but states she would rather than eat puree foods. Hospice to be considered. Discharge held because bp low, so antihypertensives stopped and she was given bolus of ivf. History Interval history: Patient was seen and examined. Follow-up on current diagnosis stage. Overnight uneventful. Patient denies any chest pain, shortness breath, nausea/ vomiting or severe headaches. Imaging, nursing note, chart, labs and old chart reviewed. Discussed with patient. Patient main complaint is bad taste in her mouth, metallic taste in mouth Hospitalist Physical - Physical exam Narrative exam: GEN: Thin frail awake and oriented 2 HEENT: NCAT, EOMI, PERRL, OP Clear NECK: supple, no adenopathy, no thyromegaly, no JVD CVS/HEART: RRR, NORMAL S1S2, NO JVD, pulses present bilaterally CHEST/LUNGS: CTA B, Symmetrical chest expansion, good air entry bilaterally GI/Abdomen: soft, NTND, good bowel sounds, no guarding or rebound /Bladder: no suprapubic tenderness, no CVA or paraspinal tenderness EXT/Skin: no c/c/e, no obvious rash MSK: Left-sided weakness with hand contractures Neuro: CN 2-12 grossly intact, no new focal deficits Psych: calm - Constitutional Vitals: Temp Pulse Resp BP Pulse Ox 98.8 F 18 L 18 139/51 99 03/31/17 12:14 03/31/17 12:14 03/31/17 12:14 03/31/17 12:14 03/31/17 12:14 General appearance: Present: no acute distress, well-nourished Results - Labs CBC & Chem 7: 03/30/17 05:47 03/30/17 05:47 Labs: Laboratory Last Values WBC 4.4 K/mm3 (4.5-11.0) L 03/30/17 05:47 RBC 3.58 M/mm3 (3.65-5.03) L 03/30/17 05:47 Hgb 11.6 gm/dl (10.1-14.3) 03/30/17 05:47 Hct 34.6 % (30.3-42.9) D 03/30/17 05:47 MCV 97 fl (79-97) 03/30/17 05:47 MCH 33 pg (28-32) H 03/30/17 05:47 MCHC 34 % (30-34) 03/30/17 05:47 RDW 14.6 % (13.2-15.2) 03/30/17 05:47 Plt Count 119 K/mm3 (140-440) L 03/30/17 05:47 Lymph % (Auto) 39.6 % (13.4-35.0) H 03/27/17 15:34 [place] % (Auto) 8.4 % (0.0-7.3) H 03/27/17 15:34 Eos % (Auto) 1.3 % (0.0-4.3) 03/27/17 15:34 Baso % (Auto) 0.6 % (0.0-1.8) 03/27/17 15:34 Lymph # 1.5 K/mm3 (1.2-5.4) 03/27/17 15:34 [place] # 0.3 K/mm3 (0.0-0.8) 03/27/17 15:34 Eos # 0.0 K/mm3 (0.0-0.4) 03/27/17 15:34 Baso # 0.0 K/mm3 (0.0-0.1) 03/27/17 15:34 Seg Neutrophils % 50.1 % (40.0-70.0) 03/27/17 15:34 Seg Neutrophils # 1.9 K/mm3 (1.8-7.7) 03/27/17 15:34 Sodium 141 mmol/L (137-145) 03/30/17 05:47 Potassium 3.8 mmol/L (3.6-5.0) 03/30/17 05:47 Chloride 109.4 mmol/L (98-107) H 03/30/17 05:47 Carbon Dioxide 24 mmol/L (22-30) 03/30/17 05:47 Anion Gap 11 mmol/L 03/30/17 05:47 BUN 10 mg/dL (7-17) 03/30/17 05:47 Creatinine 0.4 mg/dL (0.7-1.2) L 03/30/17 05:47 Estimated GFR > 60 ml/min 03/30/17 05:47 BUN/Creatinine Ratio 25 % 03/30/17 05:47 Glucose 73 mg/dL (65-100) 03/30/17 05:47 Calcium 8.4 mg/dL (8.4-10.2) 03/30/17 05:47 Magnesium 2.00 mg/dL (1.7-2.3) 03/30/17 05:47 Total Creatine Kinase 44 units/L (30-135) 03/28/17 13:08 CK-MB (CK-2) < 1.0 ng/mL (0.0-4.0) 03/28/17 13:08 CK-MB (CK-2) Rel Index 2.2 (0-4) 03/28/17 13:08 Troponin T < 0.010 ng/mL (0.00-0.029) 03/28/17 13:08
[2017-04-01] MEDS: D5NS 1,000 ML IV SCH (04:52)
[2017-04-01 05:51] VITALS: BP 135/71
[2017-04-01] MEDS: ULTRAM PO SCH (11:05)
[2017-04-01] MEDS: PROTONIX PO SCH (11:06)
--- NOTE | 2017-04-01 11:22 | Progress Note ---
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 Atypical chest pain, most likely related to GERD: Treat with PPI once a dysphagia once worked up Dysphagia, most likely odynophagia: d/w GI==>she had an EGD 2014. Severe protein calorie malnutrition: consult dietitian HTN: stop antihypertensives because bp low, monitor closely Patient failed a speech evaluation, order modified barium, discussed with GI==> diet modified to Pureed and hopefully the The metallic taste in mouth will improve She tolerated a diet but states she would rather than eat puree foods. Hospice to be considered. Discharge held because bp low, so antihypertensives stopped and she was given bolus of ivf==> bp stable History Interval history: Patient was seen and examined. Follow-up on current diagnosis stage. Overnight uneventful. Patient denies any chest pain, shortness breath, nausea/ vomiting or severe headaches. Imaging, nursing note, chart, labs and old chart reviewed. Discussed with patient. Patient main complaint is bad taste in her mouth, metallic taste in mouth Hospitalist Physical - Physical exam Narrative exam: GEN: Thin frail awake and oriented 2 HEENT: NCAT, EOMI, PERRL, OP Clear NECK: supple, no adenopathy, no thyromegaly, no JVD CVS/HEART: RRR, NORMAL S1S2, NO JVD, pulses present bilaterally CHEST/LUNGS: CTA B, Symmetrical chest expansion, good air entry bilaterally GI/Abdomen: soft, NTND, good bowel sounds, no guarding or rebound /Bladder: no suprapubic tenderness, no CVA or paraspinal tenderness EXT/Skin: no c/c/e, no obvious rash MSK: Left-sided weakness with hand contractures Neuro: CN 2-12 grossly intact, no new focal deficits Psych: calm - Constitutional Vitals: Temp Pulse Resp BP Pulse Ox 97.8 F 66 18 135/71 98 04/01/17 05:07 04/01/17 10:31 04/01/17 05:07 04/01/17 05:07 04/01/17 05:07 General appearance: Present: no acute distress, well-nourished Results - Labs CBC & Chem 7: 03/30/17 05:47 03/30/17 05:47 Labs: Laboratory Last Values WBC 4.4 K/mm3 (4.5-11.0) L 03/30/17 05:47 RBC 3.58 M/mm3 (3.65-5.03) L 03/30/17 05:47 Hgb 11.6 gm/dl (10.1-14.3) 03/30/17 05:47 Hct 34.6 % (30.3-42.9) D 03/30/17 05:47 MCV 97 fl (79-97) 03/30/17 05:47 MCH 33 pg (28-32) H 03/30/17 05:47 MCHC 34 % (30-34) 03/30/17 05:47 RDW 14.6 % (13.2-15.2) 03/30/17 05:47 Plt Count 119 K/mm3 (140-440) L 03/30/17 05:47 Lymph % (Auto) 39.6 % (13.4-35.0) H 03/27/17 15:34 [place] % (Auto) 8.4 % (0.0-7.3) H 03/27/17 15:34 Eos % (Auto) 1.3 % (0.0-4.3) 03/27/17 15:34 Baso % (Auto) 0.6 % (0.0-1.8) 03/27/17 15:34 Lymph # 1.5 K/mm3 (1.2-5.4) 03/27/17 15:34 [place] # 0.3 K/mm3 (0.0-0.8) 03/27/17 15:34 Eos # 0.0 K/mm3 (0.0-0.4) 03/27/17 15:34 Baso # 0.0 K/mm3 (0.0-0.1) 03/27/17 15:34 Seg Neutrophils % 50.1 % (40.0-70.0) 03/27/17 15:34 Seg Neutrophils # 1.9 K/mm3 (1.8-7.7) 03/27/17 15:34 Sodium 141 mmol/L (137-145) 03/30/17 05:47 Potassium 3.8 mmol/L (3.6-5.0) 03/30/17 05:47 Chloride 109.4 mmol/L (98-107) H 03/30/17 05:47 Carbon Dioxide 24 mmol/L (22-30) 03/30/17 05:47 Anion Gap 11 mmol/L 03/30/17 05:47 BUN 10 mg/dL (7-17) 03/30/17 05:47 Creatinine 0.4 mg/dL (0.7-1.2) L 03/30/17 05:47 Estimated GFR > 60 ml/min 03/30/17 05:47 BUN/Creatinine Ratio 25 % 03/30/17 05:47 Glucose 73 mg/dL (65-100) 03/30/17 05:47 Calcium 8.4 mg/dL (8.4-10.2) 03/30/17 05:47 Magnesium 2.00 mg/dL (1.7-2.3) 03/30/17 05:47 Total Creatine Kinase 44 units/L (30-135) 03/28/17 13:08 CK-MB (CK-2) < 1.0 ng/mL (0.0-4.0) 03/28/17 13:08 CK-MB (CK-2) Rel Index 2.2 (0-4) 03/28/17 13:08 Troponin T < 0.010 ng/mL (0.00-0.029) 03/28/17 13:08
--- NOTE | 2017-04-01 11:27 | Discharge Summary ---
Providers - Providers Date of Admission: 03/27/17 18:35 Date of discharge: 04/01/17 Attending physician: JARON BLANKENSHIP 03/28/17 06:39 Consult to Dietitian/Nutrition [CONS] Routine Physician Instructions: Reason For Exam: Reason for Consult: Weight loss and malnutrition 03/28/17 07:24 Consult to Physician [CONS] Routine Consulting Provider: SENDY MORENO Reason For Exam: Dysphagia Place consult to:: GI Notified:: a service Phone number called:: [phone] Was contact made?: Yes If yes, spoke with:: avani Time called:: 08:25 03/28/17 13:48 Speech Therapy Evaluation and Treat [CONS] Routine Reason For Exam: dysphagia 03/31/17 10:04 Consult to Case Management [CONS] Routine Services Needed at Discharge: Other Notified:: Maureen Was contact made?: Yes Comment:: Pt. 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 Atypical chest pain, most likely related to GERD: Treat with PPI once a dysphagia once worked up Dysphagia, most likely odynophagia: d/w GI==>she had an EGD 2014. Severe protein calorie malnutrition: consult dietitian HTN: stop antihypertensives because bp low, monitor closely Dysgeusia: symptomatic support Patient failed a speech evaluation, order modified barium, discussed with GI==> diet modified to Pureed and hopefully the The metallic taste in mouth will improve She tolerated a diet but states she would rather than eat puree foods. Hospice to be considered==>she refuses at this time Disposition: [id number] HOME UNDER HOME [facility] Time spent for discharge: 32 minutes Core Measure Documentation - Palliative Care Palliative Care/ Comfort Measures: Not Applicable - Core Measures Any of the following diagnoses?: none - VTE Discharge Requirements Deep Vein Thrombosis/Pulmonary Embolism Present on Admission: No Has pt received <5 days of overlap therapy or INR<2.0: No Anticoagulant overlap therapy prescribed at discharge: No Contraindication No Overlap Therapy order at DC: Not Indicated Exam - Physical Exam Narrative exam: GEN: Thin frail awake and oriented 2 HEENT: NCAT, EOMI, PERRL, OP Clear NECK: supple, no adenopathy, no thyromegaly, no JVD CVS/HEART: RRR, NORMAL S1S2, NO JVD, pulses present bilaterally CHEST/LUNGS: CTA B, Symmetrical chest expansion, good air entry bilaterally GI/Abdomen: soft, NTND, good bowel sounds, no guarding or rebound /Bladder: no suprapubic tenderness, no CVA or paraspinal tenderness EXT/Skin: no c/c/e, no obvious rash MSK: Left-sided weakness with hand contractures Neuro: CN 2-12 grossly intact, no new focal deficits Psych: calm - Constitutional Vitals: Temp Pulse Resp BP Pulse Ox 97.8 F 66 18 135/71 98 04/01/17 05:07 04/01/17 10:31 04/01/17 05:07 04/01/17 05:07 04/01/17 05:07 Plan Activity: up only with assistance (no strenous activity until cleared by pcp), fall precautions, other Diet: low salt Additional Instructions: Treat the metallic taste in mouth with breath mints, sugarless gum, or lozenges. Your bp medication can cause metallic taste in mouth. Ask PCP to change bp medications. Follow up with: PRIMARY CARE, [Primary Care Provider] - 3-5 Days Prescriptions: traMADol [Ultram 50 MG tab] 50 mg PO BID #30 tablet
== END 2017-04-01 16:38 | disposition hospice, home (50) | DRG 391 ==
LOC: ED 15:04 → 4A 18:35
PROVIDERS: ADMIT Internal Medicine; ATTEND Internal Medicine
DX: K21.9 Gastro-esophageal reflux disease without esophagitis (principal); E43 Unspecified severe protein-calorie malnutrition; I24.9 Acute ischemic heart disease, unspecified; R43.2 Parageusia; G89.29 Other chronic pain; M54.9 Dorsalgia, unspecified; Z96.89 Presence of other specified functional implants; R13.10 Dysphagia, unspecified; E86.0 Dehydration; I10 Essential (primary) hypertension; Z82.49 Family history of ischemic heart disease and other diseases of the circulatory system; Z79.899 Other long term (current) drug therapy
CPT/HCPCS: 36415; 71010; 74220; 74230; 78452; 80048; 82550; 82553; 83735; 84484; 85025; 85027; 93005; 93010; 93017; A9502; G8996-GN; G8997-GN; J2785; J7030; J7040; J7042